=== PATIENT | female | born 1950 | race Caucasian/White ===

== ENCOUNTER 2016-08-05 14:04 | Emergency (ER) | payer MEDICARE, BC ==
[2016-08-05] MEDS ORDERED: Sodium Chloride 0.9% 500 ML IV ONE (14:41)
[2016-08-05] MEDS ORDERED: Albuterol/Ipratropium 3.0-0.5 MG/3 ML Neb Soln NEB ONE (14:41)
[2016-08-05] MEDS ORDERED: Sodium Chloride 0.9% 10 ML Syringe FLUSH PRN (14:41)
[2016-08-05] MEDS ORDERED: HYDROmorphone 1 MG/ML Syringe IVPUSH ONE ×2 (15:50→15:57)
[2016-08-05] MEDS ORDERED: Sodium Chloride 0.9% 1,000 ML IV ONE (15:59)
[2016-08-05] MEDS ORDERED: Ondansetron 4 MG/2 ML SDV IVPUSH ONE (17:53)
--- NOTE | 2016-08-05 18:20 | EDM.PDOC ---
ED HPI GENERAL MEDICAL PROBLEM - General Chief Complaint: Respiratory Problem Stated Complaint: SOB/WEAK/CONFUSED Time Seen by Provider: 08/05/16 14:15 Source of Information: Reports: Patient, Family (daughter) History Limitations: Reports: No Limitations - History of Present Illness INITIAL COMMENTS - FREE TEXT/NARRATIVE: 65-year-old female presents with her daughter for evaluation and treatment of increased confusion, lethargy and malaise. Patient reports that she has not been feeling well since Friday. Daughter reports that she went to check on her today and she felt that she was more confused than normal lethargic and she had an increased effort of breathing. Patient states that she feels more short of breath than normal. She is normally on 3 L via nasal cannula of oxygen at home. She has end-stage COPD. Patient reports that she has been taking her nebulizers and breathing medications as prescribed. She states that she was recently started on spree that and Daliresp a few weeks ago. Patient denies any chest pain, fevers, coughing, or abdominal pain. Friday morning the patient did feel nauseous and had 1 episode of vomiting. Patient has also had decreased urinary frequency. She has been drinking water. Daughter reports 2 weeks ago she may have drank out of a stagnant pond at home. Patient is currently on narcotics for chronic low back and right hip pain. She feels that it is worsening. She is in a pain contract with a pain clinic. Next visit is on the . She has had previous epidural injections for her chronic low back and hip pain. Daughter reports that she had an echocardiogram in March 2016. She had EF of 45-55% at that time. In March she was hospitalized and intubated for pneumonia and exacerbation. Lower Back Pain Score (Numeric/FACES): 3 - Related Data Allergies Allergy/AdvReac Type Severity Reaction Status Date / Time Sulfa (Sulfonamide Allergy Cannot Verified 08/05/16 14:15 Antibiotics) Remember sunflower oil Allergy Anaphylactic Verified 08/05/16 14:15 Shock sunflower seed Allergy Hives Verified 08/05/16 14:15 alendronate sodium AdvReac Nausea Verified 08/05/16 14:15 [From Fosamax] duloxetine HCl AdvReac Nausea and Verified 08/05/16 14:15 [From Cymbalta] Vomiting erythromycin base AdvReac Nausea Verified 08/05/16 14:15 pregabalin [From Lyrica] AdvReac Pain Verified 08/05/16 14:15 Home Meds: Home Meds ARIPiprazole [Abilify] 2 mg PO DAILY 12/29/14 [History] Furosemide [Lasix] 40 mg PO BID 12/29/14 [History] Albuterol Sulfate [Proair Respiclick] 2 puff INH Q4H PRN 07/24/15 [History] predniSONE 5 mg PO DAILY 07/24/15 [History] Escitalopram Oxalate 10 mg PO DAILY 08/03/15 [History] Fluticasone/Salmeterol [Advair Diskus 500-50] 1 puff INH BID 08/03/15 [History] Gabapentin [Neurontin] 300 mg PO TID 08/03/15 [History] Aspirin/Caffeine [Jon Back & Body Caplet] 2 tab PO Q6H 02/28/16 [History] oxyCODONE 10 mg PO Q6H PRN 02/29/16 [History] Acetaminophen [Tylenol Arthritis] 1,500 mg PO Q6H PRN #0 03/02/16 [Rx] Albuterol/Ipratropium [DuoNeb 3.0-0.5 MG/3 ML] 1 inh NEB Q6H PRN 03/18/16 [ History] Diclofenac Sodium [Voltaren 1% Gel] 1 applic TOP ASDIRECTED PRN 03/18/16 [ History] Carvedilol [Coreg] 3.125 mg PO BIDMEALS 08/05/16 [History] Metoclopramide HCl [Reglan] 5 mg PO Q8HR PRN #12 tablet 08/05/16 [Rx] Metoprolol Succinate [Toprol XL] 25 mg PO DAILY 08/05/16 [History] Nitroglycerin 0.4 mg .ROUTE ASDIRECTED PRN 08/05/16 [History] Pantoprazole [ProTONIX] 40 mg PO DAILY 08/05/16 [History] Potassium Chloride 40 meq PO DAILY 08/05/16 [History] Roflumilast [Daliresp] 500 mcg PO DAILY 08/05/16 [History] Rosuvastatin [Crestor] 5 mg PO DAILY 08/05/16 [History] Tiotropium [Spiriva HandiHaler] 18 mcg INH DAILY 08/05/16 [History] Past Medical History HEENT History: Reports: Other (See Below) 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 Cardiovascular History: Reports: Heart Failure, [place], Other (See Below) Other Cardiovascular History: hypotension, cardiomegaly Respiratory History: Reports: Asthma, COPD, Pneumonia, Recurrent, Other (See Below) Other Respiratory History: wears oxygen at home 3L Gastrointestinal History: Reports: Chronic Constipation, GERD Genitourinary History: Reports: Other (See Below) Other Genitourinary History: stress incontinence [employer] History: Reports: Musculoskeletal History: Reports: Osteoarthritis, Osteoporosis Other Musculoskeletal History: 3 herniated disc to cervical spine C2 C3 C5 C6 C7; lumbar spine with herniations from T12 through S1, R hip bursitis, back pain , lumbar degneration, wrist fracture with hardware Neurological History: Reports: None Psychiatric History: Reports: Addiction, Anxiety, Depression Endocrine/Metabolic History: Reports: None Hematologic History: Reports: Anemia Immunologic History: Reports: None Oncologic (Cancer) History: Reports: Other (See Below) Other Oncologic History: vocal cord ca Dermatologic History: Reports: Cellulitis - Infectious Disease History Infectious Disease History: Reports: C-Difficile, Shingles - Past Surgical History Female Surgical History: Reports: None, Other (See Below) Musculoskeletal Surgical History: Reports: Other (See Below) Social & Family History - Family History Family Medical History: Noncontributory Cardiac: Reports: Heart Failure, [place] Respiratory: Reports: COPD - Tobacco Use Smoking Status *Q: Current Every Day Smoker Years of Tobacco use: 46 Packs/Tins Daily: 0.8 Used Tobacco, but Quit: No Month Tobacco Last Used: 02/01 Second Hand Smoke Exposure: No - Caffeine Use Caffeine Use: Reports: Tea - Recreational Drug Use Recreational Drug Use: No - Living Situation & Occupation Living situation: Reports: Other Occupation: Retired ED ROS GENERAL - Review of Systems Review Of Systems: See Below Constitutional: Reports: Weakness, Fatigue, Other (increased confusion). Denies : Fever Respiratory: Reports: Shortness of Breath. Denies: Cough Cardiovascular: Denies: Chest Pain GI/Abdominal: Reports: Nausea, Vomiting (x1 episode ). Denies: Abdominal Pain : Denies: Dysuria, Frequency Musculoskeletal: Reports: Back Pain, Other (chronic hip pain) ED EXAM, GENERAL - Physical Exam Exam: See Below Exam Limited By: No Limitations General Appearance: Alert, WD/WN, Mild Distress, Thin Ears: Normal External Exam Nose: Normal Inspection. No: Nasal Flaring Throat/Mouth: Normal Inspection, Normal Lips, Normal Oropharynx, Normal Voice, No Airway Compromise. No: Perioral Cyanosis Neck: Normal Inspection Respiratory/Chest: Decreased Breath Sounds (throughout), Wheezing (diffuse expiratory). No: Crackles, Rhonchi Cardiovascular: Normal Peripheral Pulses, Regular Rate, Rhythm GI/Abdominal: Soft, Non-Tender Neurological: Alert, Oriented, Normal Cognition Psychiatric: Normal Affect, Normal Mood Skin Exam: Warm, Dry, Normal Color EKG INTERPRETATION EKG Date: 08/05/16 Time: 15:05 Rhythm: NSR Rate (Beats/Min): 80 [place]: Normal P-Wave: Present QRS: Normal ST-T: Normal QT: Normal EKG Interpretation Comments: NSR at 80 bpm. Near Q waves in V1 and V2 - consider old anteroseptal TX. Borderline LVH pattern. Nonspecific interventricular conduction delay. Reviewed by myself and Dr. Loya. Course - Vital Signs Last Recorded V/S: Last Vital Signs Temp 36.5 C 08/05/16 14:11 Pulse 82 08/05/16 19:29 Resp 18 08/05/16 19:29 BP 100/70 08/05/16 19:29 Pulse Ox 98 08/05/16 19:29 Orthostatic Blood Pressure [ 85/64 Standing] Orthostatic Blood Pressure [ 89/56 Sitting] Orthostatic Blood Pressure [ 103/63 Supine] - Orders/Labs/Meds Labs: Laboratory Tests 08/05/16 08/05/16 08/05/16 Range/Units 15:10 15:10 15:10 WBC 7.59 (3.98-10.04) K/mm3 RBC 4.35 (3.98-5.22) M/mm3 Hgb 12.3 (11.2-15.7) gm/L Hct 39.8 (34.1-44.9) % MCV 91.5 (79.4-94.8) fl MCH 28.3 (25.6-32.2) pg MCHC 30.9 L (32.2-35.5) g/dl RDW Std Deviation 51.4 H (36.4-46.3) fL Plt Count 357 (182-369) K/mm3 MPV 9.6 (9.4-12.3) fl Neut % (Auto) 67.2 (34.0-71.1) % Lymph % (Auto) 21.1 (19.3-51.7) % [place] % (Auto) 9.4 (4.7-12.5) % Eos % (Auto) 1.7 (0.7-5.8) Baso % (Auto) 0.3 (0.1-1.2) % Neut # (Auto) 5.11 (1.56-6.13) K/mm3 Lymph # (Auto) 1.60 (1.18-3.74) K/mm3 [place] # (Auto) 0.71 H (0.24-0.36) K/mm3 Eos # (Auto) 0.13 (0.04-0.36) K/mm3 Baso # (Auto) 0.02 (0.01-0.08) K/mm3 Puncture Site ABG pH (7.35-7.45) ABG pCO2 (35.0-45.0) mmHg ABG pO2 (80.0-100.0) mmHg ABG HCO3 (22.0-26.0) meq/L ABG O2 Saturation (96.0-97.0) % ABG Base Excess (-2-2.0) A-a Gradient mmHg O2 Delivery Device Oxygen Flow Rate FiO2 (21.00-100.00) % Sodium 142 (136-145) mEq/L Potassium 3.5 (3.5-5.1) mEq/L Chloride 101 (98-107) mEq/L Carbon Dioxide 33 H (21-32) mEq/L Anion Gap 11.5 (5-15) BUN 16 (7-18) mg/dL Creatinine 0.7 (0.55-1.02) mg/dL Est Cr Clr Drug Dosing 61.98 mL/min Estimated GFR (MDRD) > 60 (>60) mL/min BUN/Creatinine Ratio 22.9 H (14-18) Glucose 86 (80-115) mg/dL Lactic Acid 0.7 (0.4-2.0) mmol/L Calcium 8.7 (8.5-10.1) mg/dL Total Bilirubin 0.2 (0.2-1.0) mg/dL AST 29 (15-37) U/L ALT 34 (14-59) U/L Alkaline Phosphatase 53 (46-116) U/L C-Reactive Protein 0.6 (<1.0) mg/dL B-Natriuretic Peptide (0-100) pg/mL Total Protein 7.4 (6.4-8.2) g/dl Albumin 3.9 (3.4-5.0) g/dl Globulin 3.5 gm/dL Albumin/Globulin Ratio 1.1 (1-2) Urine Color (Yellow) Urine Appearance (Clear) Urine pH (5.0-8.0) Ur Specific [place] (1.005-1.030) Urine Protein (Negative) Urine Glucose (UA) (Negative) Urine Ketones (Negative) Urine Occult Blood (Negative) Urine Nitrite (Negative) Urine Bilirubin (Negative) Urine Urobilinogen (0.2-1.0) Ur Leukocyte Esterase (Negative) Urine RBC (0-5) /hpf Urine WBC (0-5) /hpf Ur Epithelial Cells (0-5) /hpf Urine Bacteria (FEW) /hpf Urine Mucus (FEW) /hpf 08/05/16 08/05/16 08/05/16 Range/Units 15:10 15:15 15:40 WBC (3.98-10.04) K/mm3 RBC (3.98-5.22) M/mm3 Hgb (11.2-15.7) gm/L Hct (34.1-44.9) % MCV (79.4-94.8) fl MCH (25.6-32.2) pg MCHC (32.2-35.5) g/dl RDW Std Deviation (36.4-46.3) fL Plt Count (182-369) K/mm3 MPV (9.4-12.3) fl Neut % (Auto) (34.0-71.1) % Lymph % (Auto) (19.3-51.7) % [place] % (Auto) (4.7-12.5) % Eos % (Auto) (0.7-5.8) Baso % (Auto) (0.1-1.2) % Neut # (Auto) (1.56-6.13) K/mm3 Lymph # (Auto) (1.18-3.74) K/mm3 [place] # (Auto) (0.24-0.36) K/mm3 Eos # (Auto) (0.04-0.36) K/mm3 Baso # (Auto) (0.01-0.08) K/mm3 Puncture Site Rt radial ABG pH 7.36 (7.35-7.45) ABG pCO2 44.7 (35.0-45.0) mmHg ABG pO2 68.0 L (80.0-100.0) mmHg ABG HCO3 24.6 (22.0-26.0) meq/L ABG O2 Saturation 94.0 L (96.0-97.0) % ABG Base Excess -0.5 (-2-2.0) A-a Gradient 81 mmHg O2 Delivery Device Nasal cannula Oxygen Flow Rate 3.0 FiO2 0.00 L (21.00-100.00) % Sodium (136-145) mEq/L Potassium (3.5-5.1) mEq/L Chloride (98-107) mEq/L Carbon Dioxide (21-32) mEq/L Anion Gap (5-15) BUN (7-18) mg/dL Creatinine (0.55-1.02) mg/dL Est Cr Clr Drug Dosing mL/min Estimated GFR (MDRD) (>60) mL/min BUN/Creatinine Ratio (14-18) Glucose (80-115) mg/dL Lactic Acid (0.4-2.0) mmol/L Calcium (8.5-10.1) mg/dL Total Bilirubin (0.2-1.0) mg/dL AST (15-37) U/L ALT (14-59) U/L Alkaline Phosphatase (46-116) U/L C-Reactive Protein (<1.0) mg/dL B-Natriuretic Peptide < 15 (0-100) pg/mL Total Protein (6.4-8.2) g/dl Albumin (3.4-5.0) g/dl Globulin gm/dL Albumin/Globulin Ratio (1-2) Urine Color Yellow (Yellow) Urine Appearance Clear (Clear) Urine pH 5.5 (5.0-8.0) Ur Specific [place] 1.025 (1.005-1.030) Urine Protein Negative (Negative) Urine Glucose (UA) Negative (Negative) Urine Ketones 1+ H (Negative) Urine Occult Blood Trace-intact H (Negative) Urine Nitrite Negative (Negative) Urine Bilirubin Negative (Negative) Urine Urobilinogen 0.2 (0.2-1.0) Ur Leukocyte Esterase Negative (Negative) Urine RBC 0-5 (0-5) /hpf Urine WBC 0-5 (0-5) /hpf Ur Epithelial Cells 0-5 (0-5) /hpf Urine Bacteria Not seen (FEW) /hpf Urine Mucus Not seen (FEW) /hpf Meds: Medications Discontinued Medications Generic Name Dose Route Start Last Admin Trade Name Freq PRN Reason Stop Dose Admin Albuterol/Ipratropium 3 ml 08/05/16 14:41 Duoneb 3.0-0.5 Mg/3 Ml NEB 08/05/16 14:42 ONETIME ONE Hydromorphone HCl 1 mg 08/05/16 15:50 08/05/16 16:07 Dilaudid IVPUSH 08/05/16 15:51 Not Given ONETIME ONE Hydromorphone HCl 0.5 mg 08/05/16 15:57 08/05/16 16:01 Dilaudid IVPUSH 08/05/16 15:58 0.5 mg ONETIME ONE Administration Sodium Chloride 500 mls @ 500 mls/hr 08/05/16 14:41 08/05/16 15:08 Normal Saline IV 08/05/16 15:40 500 mls/hr ONETIME ONE Administration Sodium Chloride 1,000 mls @ 999 mls/hr 08/05/16 15:59 08/05/16 16:06 Normal Saline IV 08/05/16 16:59 999 mls/hr ONETIME ONE Administration Ondansetron HCl 4 mg 08/05/16 17:53 08/05/16 18:05 Zofran IVPUSH 08/05/16 17:54 4 mg ONETIME ONE Administration Sodium Chloride 10 ml 08/05/16 14:41 08/05/16 15:08 Saline Flush FLUSH 10 ml ASDIRECTED PRN Administration Keep Vein Open - Radiology Interpretation Free Text/Narrative:: chest xray shows hyperinflation. No acute changes. Reviewed by myself and Dr. Loya - Re-Assessments/Exams Free Text/Narrative Re-Assessment/Exam: 08/05/16 18:11 Labs returned. WBC is 7.59, hgb is 12.3 and plts are 357 pH is 7.36, pO2 is 68, pCO2 is 44.7 and bicarb is 24.6 sodium is 142, potassium is 3.5, chloride is 101. Anion gap is 11.5. BNP is <15 CRP is 0.6 UA has 1+ ketones and trace intact blood I discussed the case with Dr. Loya. Recommended follow-up with PCP and pulmonology. I discussed labs and imaging with the patient. At this point I do not see any reason for admission. The patient has done well on 3 L via nasal cannula. Her lab studies are unremarkable. I discussed with her daughter options. If she is uncomfortable taking her home we could offer admission however, it may be for an observation admission. She would also likely be encouraged to go to a jail as she is unable to care for himself at home. Daughter does not want this and will take her home. I encouraged him to contact her food stand manager and her pain clinic. I recommend they discuss her new medication changes. Her symptoms today could be from her recent medication changes. Discharge instructions as documented. Departure - Departure Time of Disposition: 18:11 Disposition: Home, Self-Care 01 Condition: Fair Clinical Impression: Orthostatic hypotension - Discharge Information Prescriptions: Metoclopramide HCl [Reglan] 5 mg PO Q8HR PRN #12 tablet PRN Reason: Nausea Instructions: Orthostatic Hypotension Referrals: Orquidea Hernadez NP [Primary Care Provider] - Forms: ED Department Discharge Additional Instructions: Close follow-up with your primary care provider Friday or this week. Reglan 1 tab every 8 hours as needed for nausea. Rest. Stop the Coreg. Please return to the ER if your symptoms change or worsen.
[2016-08-05 19:31] VITALS: BP 100/70
--- NOTE | 2016-08-06 09:10 | CR ---
Chest: Portable view of the chest was obtained. Comparison: Previous chest x-ray of 04/01/16. Heart size and mediastinum are within normal limits. Focal density noted within the right upper lung believed to represent an area of scarring. Lungs otherwise are clear but somewhat hyperinflated. Bony structures are osteopenic but grossly intact. Previous cholecystectomy is noted. Probable emphysematous change is present. Impression: 1. Density within the right upper chest most likely representing area of scarring. Probable emphysematous change. 2. Other incidental findings. Nothing acute is definitely appreciated. Diagnostic code #3
== END 2016-08-05 18:50 | disposition home or self-care (01) ==
LOC: JD.ED 14:04
DX: I95.1 Orthostatic hypotension (principal); I50.9 Heart failure, unspecified; I25.2 Old myocardial infarction; J45.909 Unspecified asthma, uncomplicated; K21.9 Gastro-esophageal reflux disease without esophagitis; M19.90 Unspecified osteoarthritis, unspecified site; F41.9 Anxiety disorder, unspecified; F17.210 Nicotine dependence, cigarettes, uncomplicated; F32.9 Major depressive disorder, single episode, unspecified; Z88.2 Allergy status to sulfonamides; Z88.8 Allergy status to other drugs, medicaments and biological substances; Z79.82 Long term (current) use of aspirin
CPT/HCPCS: 36415; 36600; 71010; 80053; 81001; 82803; 83605; 83880; 85025; 86140; 87040; 93005; 94664; 96361; 96374; 96375; 99285; J1170; J2405; J7040; J7050; 99284

== ENCOUNTER 2016-09-13 00:30 | Emergency (ER) | payer MEDICARE, BC ==
[2016-09-13] MEDS ORDERED: Sodium Chloride 0.9% 10 ML Syringe FLUSH PRN (01:14)
[2016-09-13] MEDS ORDERED: methylPREDNISolone Sodium Succinate 125 MG/2 ML SDV IVPUSH ONE (01:20)
[2016-09-13] MEDS ORDERED: Albuterol/Ipratropium 3.0-0.5 MG/3 ML Neb Soln NEB ONE (01:20)
--- NOTE | 2016-09-13 02:48 | EDM.PDOC ---
ED HPI GENERAL MEDICAL PROBLEM - General Chief Complaint: General Stated Complaint: respiratory PROBLEMS Time Seen by Provider: 09/13/16 00:54 Source of Information: Reports: Patient, RN Notes Reviewed - History of Present Illness INITIAL COMMENTS - FREE TEXT/NARRATIVE: 66-year-old male by daughter for evaluation of shortness of breath, coughing, generalized weakness. She does have known long-standing history of COPD. Her daughter tells me that she has started smoking again. Patient states that the cough is worsened over the last few days. She is now coughing up yellowish colored phlegm. She is not aware of running fever. She does have a nebulizer at home but states she has not been using that regularly. She states she has not used it in the past day. She denies sore throat other than the discomfort of coughing. She denies major nasal or sinus congestion at this time. She's had decreased appetite. No current abdominal pain or vomiting. No leg swelling or discomfort. - Related Data Allergies Allergy/AdvReac Type Severity Reaction Status Date / Time Sulfa (Sulfonamide Allergy Cannot Verified 09/13/16 00:42 Antibiotics) Remember sunflower oil Allergy Anaphylactic Verified 09/13/16 00:42 Shock sunflower seed Allergy Hives Verified 09/13/16 00:42 alendronate sodium AdvReac Nausea Verified 09/13/16 00:42 [From Fosamax] duloxetine HCl AdvReac Nausea and Verified 09/13/16 00:42 [From Cymbalta] Vomiting erythromycin base AdvReac Nausea Verified 09/13/16 00:42 pregabalin [From Lyrica] AdvReac Pain Verified 09/13/16 00:42 Home Meds: Home Meds ARIPiprazole [Abilify] 2 mg PO DAILY 12/29/14 [History] Furosemide [Lasix] 40 mg PO BID 12/29/14 [History] Albuterol Sulfate [Proair Respiclick] 2 puff INH Q4H PRN 07/24/15 [History] predniSONE 5 mg PO DAILY 07/24/15 [History] Escitalopram Oxalate 10 mg PO DAILY 08/03/15 [History] Fluticasone/Salmeterol [Advair Diskus 500-50] 1 puff INH BID 08/03/15 [History] Gabapentin [Neurontin] 300 mg PO TID 08/03/15 [History] Aspirin/Caffeine [Jon Back & Body Caplet] 2 tab PO Q6H 02/28/16 [History] oxyCODONE 10 mg PO Q6H PRN 02/29/16 [History] Acetaminophen [Tylenol Arthritis] 1,500 mg PO Q6H PRN #0 03/02/16 [Rx] Albuterol/Ipratropium [DuoNeb 3.0-0.5 MG/3 ML] 1 inh NEB Q6H PRN 03/18/16 [ History] Diclofenac Sodium [Voltaren 1% Gel] 1 applic TOP ASDIRECTED PRN 03/18/16 [ History] Carvedilol [Coreg] 3.125 mg PO BIDMEALS 08/05/16 [History] Metoclopramide HCl [Reglan] 5 mg PO Q8HR PRN #12 tablet 08/05/16 [Rx] Metoprolol Succinate [Toprol XL] 25 mg PO DAILY 08/05/16 [History] Nitroglycerin 0.4 mg .ROUTE ASDIRECTED PRN 08/05/16 [History] Pantoprazole [ProTONIX] 40 mg PO DAILY 08/05/16 [History] Potassium Chloride 40 meq PO DAILY 08/05/16 [History] Roflumilast [Daliresp] 500 mcg PO DAILY 08/05/16 [History] Rosuvastatin [Crestor] 5 mg PO DAILY 08/05/16 [History] Tiotropium [Spiriva HandiHaler] 18 mcg INH DAILY 08/05/16 [History] Levofloxacin [Levaquin] 500 mg PO Q24H #7 tablet 09/13/16 [Rx] Past Medical History HEENT History: Reports: Other (See Below) 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 Cardiovascular History: Reports: Heart Failure, [place], Other (See Below) Other Cardiovascular History: hypotension, cardiomegaly Respiratory History: Reports: Asthma, COPD, Pneumonia, Recurrent, Other (See Below) Other Respiratory History: wears oxygen at home 3L Gastrointestinal History: Reports: Chronic Constipation, GERD Genitourinary History: Reports: Other (See Below) Other Genitourinary History: stress incontinence [employer]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: Musculoskeletal History: Reports: Osteoarthritis, Osteoporosis Other Musculoskeletal History: 3 herniated disc to cervical spine C2 C3 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 C7; lumbar spine with herniations from T12 through S1, R hip bursitis, back pain , lumbar degneration, wrist fracture with hardware Neurological History: Reports: None Psychiatric History: Reports: Addiction, Anxiety, Depression Endocrine/Metabolic History: Reports: None Hematologic History: Reports: Anemia Immunologic History: Reports: None Oncologic (Cancer) History: Reports: Other (See Below) Other Oncologic History: vocal cord ca Dermatologic History: Reports: Cellulitis - Infectious Disease History Infectious Disease History: Reports: C-Difficile, Shingles - Past Surgical History Female Surgical History: Reports: None, Other (See Below) Musculoskeletal Surgical History: Reports: Other (See Below) Social & Family History - Family History Family Medical History: Noncontributory Cardiac: Reports: Heart Failure, [place] Respiratory: Reports: COPD - Tobacco Use Smoking Status *Q: Current Every Day Smoker Years of Tobacco use: 35 Packs/Tins Daily: 1 Used Tobacco, but Quit: No Month Tobacco Last Used: 02/01 Second Hand Smoke Exposure: No - Caffeine Use Caffeine Use: Reports: Tea - Recreational Drug Use Recreational Drug Use: No - Living Situation & Occupation Living situation: Reports: Other Occupation: Retired ED ROS GENERAL - Review of Systems Review Of Systems: See Below Constitutional: Denies: Fever, Chills, Diaphoresis HEENT: Denies: Sinus Problem, Throat Pain Respiratory: Reports: Shortness of Breath, Wheezing, Cough, Sputum (Yellow colored). Denies: Pleuritic Chest Pain Cardiovascular: Reports: Chest Pain (With coughing) Endocrine: Reports: Fatigue GI/Abdominal: Reports: Decreased Appetite. Denies: Abdominal Pain, Nausea, Vomiting Musculoskeletal: Reports: No Symptoms Skin: Reports: No Symptoms Neurological: Reports: Weakness (Generalized). Denies: Trouble Speaking ED EXAM, GENERAL - Physical Exam Exam: See Below General Appearance: Alert, No Apparent Distress Eye Exam: Bilateral Eye: PERRL Nose: Normal Inspection Throat/Mouth: Normal Inspection, Normal Oropharynx Head: Atraumatic. No: Facial Swelling Neck: Supple, Full Range of Motion, Other (No JVD) Respiratory/Chest: Respiratory Distress (Mild tachypnea), Wheezing (Mild bilateral). No: Rales, Rhonchi Cardiovascular: Regular Rate, Rhythm GI/Abdominal: Soft, Non-Tender Back Exam: No: CVA Tenderness (L), CVA Tenderness (R) Extremities: No: Pedal Edema, Leg Pain Neurological: Alert, Oriented, No Motor/Sensory Deficits Skin Exam: Warm, Dry, Normal Color Course - Vital Signs Last Recorded V/S: Last Vital Signs Temp 97.0 F 09/13/16 00:43 Pulse 90 09/13/16 08:00 Resp 18 09/13/16 08:00 BP 120/75 09/13/16 08:00 Pulse Ox 96 09/13/16 08:00 - Orders/Labs/Meds Labs: Laboratory Tests 09/13/16 09/13/16 09/13/16 Range/Units 01:29 01:29 02:10 WBC 13.13 H (3.98-10.04) K/mm3 RBC 4.03 (3.98-5.22) M/mm3 Hgb 11.3 (11.2-15.7) gm/L Hct 36.8 (34.1-44.9) % MCV 91.3 (79.4-94.8) fl MCH 28.0 (25.6-32.2) pg MCHC 30.7 L (32.2-35.5) g/dl RDW Std Deviation 52.3 H (36.4-46.3) fL Plt Count 323 (182-369) K/mm3 MPV 9.7 (9.4-12.3) fl Neut % (Auto) 81.7 H (34.0-71.1) % Lymph % (Auto) 8.8 L (19.3-51.7) % Parke % (Auto) 6.9 (4.7-12.5) % Eos % (Auto) 2.2 (0.7-5.8) Baso % (Auto) 0.2 (0.1-1.2) % Neut # (Auto) 10.73 H (1.56-6.13) K/mm3 Lymph # (Auto) 1.16 L (1.18-3.74) K/mm3 Parke # (Auto) 0.90 H (0.24-0.36) K/mm3 Eos # (Auto) 0.29 (0.04-0.36) K/mm3 Baso # (Auto) 0.02 (0.01-0.08) K/mm3 Manual Slide Review Abnormal smear Sodium (136-145) mEq/L Potassium (3.5-5.1) mEq/L Chloride (98-107) mEq/L Carbon Dioxide (21-32) mEq/L Anion Gap (5-15) BUN (7-18) mg/dL Creatinine (0.55-1.02) mg/dL Est Cr Clr Drug Dosing Estimated GFR (MDRD) (>60) mL/min BUN/Creatinine Ratio (14-18) Glucose (80-115) mg/dL Calcium (8.5-10.1) mg/dL Total Bilirubin (0.2-1.0) mg/dL AST (15-37) U/L ALT (14-59) U/L Alkaline Phosphatase (46-116) U/L C-Reactive Protein 19.2 H* (<1.0) mg/dL B-Natriuretic Peptide < 15 (0-100) pg/mL Total Protein (6.4-8.2) g/dl Albumin (3.4-5.0) g/dl Globulin gm/dL Albumin/Globulin Ratio (1-2) 09/13/16 Range/Units 02:10 WBC (3.98-10.04) K/mm3 RBC (3.98-5.22) M/mm3 Hgb (11.2-15.7) gm/L Hct (34.1-44.9) % MCV (79.4-94.8) fl MCH (25.6-32.2) pg MCHC (32.2-35.5) g/dl RDW Std Deviation (36.4-46.3) fL Plt Count (182-369) K/mm3 MPV (9.4-12.3) fl Neut % (Auto) (34.0-71.1) % Lymph % (Auto) (19.3-51.7) % Parke % (Auto) (4.7-12.5) % Eos % (Auto) (0.7-5.8) Baso % (Auto) (0.1-1.2) % Neut # (Auto) (1.56-6.13) K/mm3 Lymph # (Auto) (1.18-3.74) K/mm3 Parke # (Auto) (0.24-0.36) K/mm3 Eos # (Auto) (0.04-0.36) K/mm3 Baso # (Auto) (0.01-0.08) K/mm3 Manual Slide Review Sodium 140 (136-145) mEq/L Potassium 4.3 (3.5-5.1) mEq/L Chloride 100 (98-107) mEq/L Carbon Dioxide 34 H (21-32) mEq/L Anion Gap 10.3 (5-15) BUN 22 H (7-18) mg/dL Creatinine 0.6 (0.55-1.02) mg/dL Est Cr Clr Drug Dosing TNP Estimated GFR (MDRD) > 60 (>60) mL/min BUN/Creatinine Ratio 36.7 H (14-18) Glucose 104 (80-115) mg/dL Calcium 8.9 (8.5-10.1) mg/dL Total Bilirubin 0.2 (0.2-1.0) mg/dL AST 17 (15-37) U/L ALT 24 (14-59) U/L Alkaline Phosphatase 63 (46-116) U/L C-Reactive Protein (<1.0) mg/dL B-Natriuretic Peptide (0-100) pg/mL Total Protein 7.4 (6.4-8.2) g/dl Albumin 3.7 (3.4-5.0) g/dl Globulin 3.7 gm/dL Albumin/Globulin Ratio 1.0 (1-2) Meds: Medications Discontinued Medications Generic Name Dose Route Start Last Admin Trade Name Freq PRN Reason Stop Dose Admin Acetaminophen 975 mg 09/13/16 06:49 09/13/16 06:57 Tylenol PO 09/13/16 06:50 975 mg NOW ONE Administration Albuterol 2.5 mg 09/13/16 06:37 09/13/16 06:51 Proventil Neb Soln [facility] 09/13/16 06:38 2.5 mg ONETIME ONE Administration Albuterol/Ipratropium 3 ml 09/13/16 01:20 09/13/16 01:34 Duoneb 3.0-0.5 Mg/3 Ml [facility] 09/13/16 01:21 3 ml ONETIME ONE Administration Levofloxacin/Dextrose 750 mg/ 150 mls @ 100 mls/hr 09/13/16 03:04 09/13/16 03 :46 Premix IV 09/13/16 04:33 100 mls/hr ONETIME ONE Administration Methylprednisolone Sodium Succinate 125 mg 09/13/16 01:20 09/13/16 01:31 Solu-Medrol IVPUSH 09/13/16 01:21 125 mg ONETIME ONE Administration Prednisone 40 mg 09/13/16 06:53 Prednisone PO 09/13/16 06:54 NOW ONE Prednisone 40 mg 09/13/16 06:56 09/13/16 06:57 Prednisone PO 09/13/16 06:57 40 mg ONETIME ONE Administration Prednisone Confirm 09/13/16 06:57 Prednisone Administered 09/13/16 06:58 Dose 40 mg .ROUTE .STK-MED ONE Sodium Chloride 10 ml 09/13/16 01:14 09/13/16 01:31 Saline Flush FLUSH 10 ml ASDIRECTED PRN Administration Keep Vein Open - Re-Assessments/Exams Free Text/Narrative Re-Assessment/Exam: 09/13/16 02:47 Chest x-ray shows some mild hyperinflation, no apparent acute infiltrate, lung markings similar to prior chest x-ray on record Departure - Departure Time of Disposition: 08:00 Disposition: Home, Self-Care 01 Condition: Fair Clinical Impression: COPD exacerbation - Discharge Information Prescriptions: Levofloxacin [Levaquin] 500 mg PO Q24H #7 tablet Instructions: Chronic Obstructive Pulmonary Disease Exacerbation Referrals: Orquidea Hernadez SUSTAINABLE DESIGN COORDINATOR [Primary Care Provider] - Forms: ED Department Discharge Additional Instructions: You need to try hard to stop smoking, you have been given a dose of Levaquin 750 mg IV while here in the emergency department. Continue that 500 mg daily for the next week. Your next dose of Levaquin should be tomorrow morning. Prednisone 40 mg every morning for 3 days and then 20 mg every morning for 3 days. Follow-up with your regular medical provider in about one week for recheck. Return to ED if symptoms worsening in any way
[2016-09-13] MEDS ORDERED: Levofloxacin/Dextrose 5%-Water 750 MG in Premix Bag 1 BAG IV ONE (03:04)
[2016-09-13] MEDS ORDERED: Albuterol 0.083% 2.5 MG/3 ML Neb Soln NEB ONE (06:37)
[2016-09-13] MEDS ORDERED: Acetaminophen 325 MG Tab PO ONE (06:49)
[2016-09-13] MEDS ORDERED: predniSONE 20 MG Tab PO ONE ×2 (06:53→06:56)
[2016-09-13] MEDS ORDERED: predniSONE 20 MG Tab ONE (06:57)
--- NOTE | 2016-09-13 08:04 | CR ---
Chest: Portable view of the chest was obtained. Comparison: Previous chest x-ray of 08/05/16. Heart size and mediastinum are normal. Small parenchymal density noted within the right upper lung most likely due to an area of scarring which is similar to previous exam. Lungs otherwise are clear. Bony structures are grossly intact. Impression: 1. Stable area of parenchymal scarring within the right upper lung. 2. Nothing acute is appreciated on portable chest x-ray. Diagnostic code #2
[2016-09-13 08:40] VITALS: BP 120/75
== END 2016-09-13 08:20 | disposition home or self-care (01) ==
LOC: JD.ED 00:30
DX: J44.1 Chronic obstructive pulmonary disease with (acute) exacerbation (principal); I25.2 Old myocardial infarction; I50.9 Heart failure, unspecified; J45.909 Unspecified asthma, uncomplicated; K21.9 Gastro-esophageal reflux disease without esophagitis; M19.90 Unspecified osteoarthritis, unspecified site; M81.0 Age-related osteoporosis without current pathological fracture; F17.210 Nicotine dependence, cigarettes, uncomplicated; F41.9 Anxiety disorder, unspecified; F32.9 Major depressive disorder, single episode, unspecified; Z79.82 Long term (current) use of aspirin; Z79.899 Other long term (current) drug therapy; Z88.1 Allergy status to other antibiotic agents; Z88.2 Allergy status to sulfonamides; Z88.8 Allergy status to other drugs, medicaments and biological substances; Z91.018 Allergy to other foods
CPT/HCPCS: 36415; 71010; 80053; 83880; 85025; 86140; 94640; 94664; 96365; 96375; 99285; A9270; J1956; J2930; J7050; 99284

== ENCOUNTER 2016-10-25 15:18 | Emergency (ER) | payer MEDICARE, BC ==
[2016-10-25] MEDS ORDERED: Sodium Chloride 0.9% 10 ML Syringe FLUSH PRN (16:07)
--- NOTE | 2016-10-25 16:26 | EDM.PDOC ---
ED HPI GENERAL MEDICAL PROBLEM - General Chief Complaint: Respiratory Problem Stated Complaint: CHF Time Seen by Provider: 10/25/16 16:09 Source of Information: Reports: Patient History Limitations: Reports: No Limitations - History of Present Illness INITIAL COMMENTS - FREE TEXT/NARRATIVE: 66-year-old female with a past medical history of COPD and emphysema presents with her daughter for evaluation and treatment of weight gain and lower leg edema. History is provided by the patient and her daughter. Current symptoms include weakness, lightheadedness, bilateral lower leg edema and a weight gain of 4 pounds in one week. Patient is chronically on oxygen due to her COPD. Normally wears 2-3 L at home. She has not had an increase oxygen. She has not noticed any shortness of breath worse than normal. She denies any chest pain, fevers, nausea, vomiting, worsening cough, worsening shortness of breath or any syncope. Patient lives at home by herself. She frequently has fatigue due to her COPD. Daughter reports a week ago she fell. States that she will often fall asleep while standing up. She landed on her buttocks and her low back. She does have chronic back pain. She is currently in a pain contract for this. She has been walking and the daughter only recently found out about the fall. lower back Pain Score (Numeric/FACES): 4 - Related Data Allergies Allergy/AdvReac Type Severity Reaction Status Date / Time Sulfa (Sulfonamide Allergy Cannot Verified 10/27/16 15:54 Antibiotics) Remember sunflower oil Allergy Anaphylactic Verified 10/27/16 15:54 Shock sunflower seed Allergy Hives Verified 10/27/16 15:54 alendronate sodium AdvReac Nausea Verified 10/27/16 15:54 [From Fosamax] duloxetine HCl AdvReac Nausea and Verified 10/27/16 15:54 [From Cymbalta] Vomiting erythromycin base AdvReac Nausea Verified 10/27/16 15:54 pregabalin [From Lyrica] AdvReac Pain Verified 10/27/16 15:54 Home Meds: Home Meds ARIPiprazole [Abilify] 2 mg PO DAILY 12/29/14 [History] Furosemide [Lasix] 40 mg PO BID 12/29/14 [History] Albuterol Sulfate [Proair Respiclick] 2 puff INH Q4H PRN 07/24/15 [History] Escitalopram Oxalate 20 mg PO DAILY 08/03/15 [History] Fluticasone/Salmeterol [Advair Diskus 500-50] 1 puff INH BID 08/03/15 [History] Gabapentin [Neurontin] 600 mg PO TID 08/03/15 [History] Aspirin/Caffeine [Jon Back & Body Caplet] 2 tab PO Q6H PRN 02/28/16 [History] oxyCODONE 10 mg PO Q6H PRN 02/29/16 [History] Acetaminophen [Tylenol Arthritis] 1,500 mg PO Q6H PRN #0 03/02/16 [Rx] Albuterol/Ipratropium [DuoNeb 3.0-0.5 MG/3 ML] 1 inh NEB Q6H PRN 03/18/16 [ History] Diclofenac Sodium [Voltaren 1% Gel] 1 applic TOP ASDIRECTED PRN 03/18/16 [ History] Nitroglycerin 0.4 mg .ROUTE ASDIRECTED PRN 08/05/16 [History] Pantoprazole [ProTONIX] 40 mg PO DAILY 08/05/16 [History] Potassium Chloride 40 meq PO DAILY 08/05/16 [History] Rosuvastatin [Crestor] 5 mg PO DAILY 08/05/16 [History] Tiotropium [Spiriva HandiHaler] 18 mcg INH DAILY 08/05/16 [History] ALPRAZolam [ALPRAZolam ODT] 0.25 mg PO BEDTIME PRN 10/25/16 [History] Albuterol/Ipratropium [DuoNeb 3.0-0.5 MG/3 ML] 3 ml NEB Q6H PRN 10/25/16 [ History] Calcium Carbonate/Vitamin D3 [Calcium 500 + Vit D 400] 1 each PO BID 10/25/16 [ History] Cephalexin [IMW: Cephalexin] 500 mg PO BID #14 cap 10/25/16 [Rx] Cholecalciferol (Vitamin D3) [Vitamin D3] 1,000 unit PO DAILY 10/25/16 [History] Cyanocobalamin (Vitamin B-12) [Cyanocobalamin Injection] 1,000 mcg IJ ASDIRECTED 10/25/16 [History] Denosumab [Prolia] 60 mg SUBCUT ONETIME 10/25/16 [History] Ferrous Sulfate 325 mg PO DAILY 10/25/16 [History] Loperamide [Imodium] 4 mg PO Q6H PRN 10/25/16 [History] diphenhydrAMINE HCl [Benadryl Allergy] 25 mg PO ASDIRECTED PRN 10/25/16 [History ] Doxycycline Hyclate 100 mg PO Q12H #20 tablet 10/27/16 [Rx] busPIRone [Buspar] 5 mg PO TID 10/27/16 [History] Past Medical History HEENT History: Reports: Other (See Below) 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 Cardiovascular History: Reports: Heart Failure, [place], Other (See Below) Other Cardiovascular History: hypotension, cardiomegaly Respiratory History: Reports: Asthma, COPD, Pneumonia, Recurrent, Other (See Below) Other Respiratory History: wears oxygen at home 2L Gastrointestinal History: Reports: Chronic Constipation, GERD Genitourinary History: Reports: Other (See Below) Other Genitourinary History: stress incontinence [employer]OR [employer] History: Reports: Musculoskeletal History: Reports: Osteoarthritis, Osteoporosis Other Musculoskeletal History: 3 herniated disc to cervical spine C2 C3 C5 C6 C7; lumbar spine with herniations from T12 through S1, R hip bursitis, back pain , lumbar degneration, wrist fracture with hardware Neurological History: Reports: None Psychiatric History: Reports: Addiction, Anxiety, Depression Endocrine/Metabolic History: Reports: None Hematologic History: Reports: Anemia Immunologic History: Reports: None Oncologic (Cancer) History: Reports: Other (See Below) Other Oncologic History: vocal cord ca Dermatologic History: Reports: Cellulitis - Infectious Disease History Infectious Disease History: Reports: C-Difficile, Shingles - Past Surgical History Female Surgical History: Reports: None Musculoskeletal Surgical History: Reports: Other (See Below) Social & Family History - Family History Family Medical History: Noncontributory Cardiac: Reports: Heart Failure, IA Respiratory: Reports: COPD - Tobacco Use Smoking Status *Q: Former Smoker Years of Tobacco use: 35 Packs/Tins Daily: 1 Used Tobacco, but Quit: No Month Tobacco Last Used: 02/01 Second Hand Smoke Exposure: No - Caffeine Use Caffeine Use: Reports: Coffee - Recreational Drug Use Recreational Drug Use: No - Living Situation & Occupation Living situation: Reports: Other Occupation: Retired ED ROS GENERAL - Review of Systems Review Of Systems: See Below Constitutional: Reports: Weakness, Fatigue, Weight Gain (4lbs in one week). Denies: Fever Respiratory: Reports: Shortness of Breath (chronic, not change). Denies: Cough Cardiovascular: Reports: Edema, Lightheadedness. Denies: Chest Pain GI/Abdominal: Denies: Nausea, Vomiting Musculoskeletal: Reports: Back Pain (chronic) Neurological: Denies: Syncope ED EXAM, GENERAL - Physical Exam Exam: See Below Exam Limited By: No Limitations General Appearance: No Apparent Distress, Lethargic, Thin Ears: Normal External Exam, Normal Canal, Hearing Grossly Normal, Normal TMs Nose: Normal Inspection Throat/Mouth: Normal Inspection, Normal Lips, Normal Voice, No Airway Compromise Respiratory/Chest: No Respiratory Distress, Wheezing Cardiovascular: Normal Peripheral Pulses, Regular Rate, Rhythm, No Murmur, Other (trace nonpitting edema to the bilateral legs) Peripheral Pulses: 2+: Radial (L), Radial (R), Posterior Tibial (L), Posterior Tibial (R) GI/Abdominal: Soft, Non-Tender Back Exam: Normal Inspection Extremities: Normal Inspection, Normal Range of Motion Neurological: Slow to Respond Psychiatric: Normal Affect, Normal Mood Skin Exam: Warm, Dry, Pallor EKG INTERPRETATION EKG Date: 10/25/16 Time: 17:00 Rhythm: NSR Rate (Beats/Min): 98 [place]: Normal P-Wave: Present QRS: LBBB ST-T: Normal QT: Normal EKG Interpretation Comments: NSR at 98 bpm. LBBB. Reviewed by myself and Dr. jaime. Course - Vital Signs Last Recorded V/S: Last Vital Signs Temp 36.5 C 10/25/16 15:20 Pulse 112 H 10/25/16 20:00 Resp 29 H 10/25/16 20:00 BP 114/56 L 10/25/16 18:30 Pulse Ox 99 10/25/16 20:00 Orthostatic Blood Pressure [ 106/64 Standing] Orthostatic Blood Pressure [ 99/57 Supine] - Orders/Labs/Meds Labs: Laboratory Tests 10/25/16 10/25/16 10/25/16 Range/Units 16:18 16:25 16:25 WBC 17.90 H (3.98-10.04) K/mm3 RBC 4.16 (3.98-5.22) M/mm3 Hgb 11.9 (11.2-15.7) gm/L Hct 37.9 (34.1-44.9) % MCV 91.1 (79.4-94.8) fl MCH 28.6 (25.6-32.2) pg MCHC 31.4 L (32.2-35.5) g/dl RDW Std Deviation 52.7 H (36.4-46.3) fL Plt Count 350 (182-369) K/mm3 MPV 9.5 (9.4-12.3) fl Neut % (Auto) 84.2 H (34.0-71.1) % Lymph % (Auto) 7.0 L (19.3-51.7) % Rock % (Auto) 8.1 (4.7-12.5) % Eos % (Auto) 0.3 L (0.7-5.8) Baso % (Auto) 0.1 (0.1-1.2) % Neut # (Auto) 15.06 H (1.56-6.13) K/mm3 Lymph # (Auto) 1.26 (1.18-3.74) K/mm3 Rock # (Auto) 1.45 H (0.24-0.36) K/mm3 Eos # (Auto) 0.05 (0.04-0.36) K/mm3 Baso # (Auto) 0.02 (0.01-0.08) K/mm3 Manual Slide Review Normal smear Sodium 139 (136-145) mEq/L Potassium 3.3 L (3.5-5.1) mEq/L Chloride 100 (98-107) mEq/L Carbon Dioxide 32 (21-32) mEq/L Anion Gap 10.3 (5-15) BUN 14 (7-18) mg/dL Creatinine 0.6 (0.55-1.02) mg/dL Est Cr Clr Drug Dosing 71.96 mL/min Estimated GFR (MDRD) > 60 (>60) mL/min BUN/Creatinine Ratio 23.3 H (14-18) Glucose 104 (80-115) mg/dL Calcium 8.8 (8.5-10.1) mg/dL Total Bilirubin 0.3 (0.2-1.0) mg/dL AST 42 H (15-37) U/L ALT 25 (14-59) U/L Alkaline Phosphatase 43 L (46-116) U/L CK-MB (CK-2) 8.0 H (0-3.6) ng/ml Troponin I < 0.017 (0.00-0.056) ng/mL C-Reactive Protein (<1.0) mg/dL NT-Pro-B Natriuret Pep 157 H (0-125) pg/mL Total Protein 7.6 (6.4-8.2) g/dl Albumin 3.9 (3.4-5.0) g/dl Globulin 3.7 gm/dL Albumin/Globulin Ratio 1.1 (1-2) Urine Color Yellow (Yellow) Urine Appearance Clear (Clear) Urine pH 6.5 (5.0-8.0) Ur Specific [place] 1.015 (1.005-1.030) Urine Protein Negative (Negative) Urine Glucose (UA) Negative (Negative) Urine Ketones Negative (Negative) Urine Occult Blood Trace-intact H (Negative) Urine Nitrite Negative (Negative) Urine Bilirubin Negative (Negative) Urine Urobilinogen 0.2 (0.2-1.0) Ur Leukocyte Esterase Trace H (Negative) Urine RBC 0-5 (0-5) /hpf Urine WBC 0-5 (0-5) /hpf Ur Epithelial Cells Not seen (0-5) /hpf Urine Bacteria Not seen (FEW) /hpf Urine Mucus Not seen (FEW) /hpf 10/25/16 Range/Units 16:25 WBC (3.98-10.04) K/mm3 RBC (3.98-5.22) M/mm3 Hgb (11.2-15.7) gm/L Hct (34.1-44.9) % MCV (79.4-94.8) fl MCH (25.6-32.2) pg MCHC (32.2-35.5) g/dl RDW Std Deviation (36.4-46.3) fL Plt Count (182-369) K/mm3 MPV (9.4-12.3) fl Neut % (Auto) (34.0-71.1) % Lymph % (Auto) (19.3-51.7) % Rock % (Auto) (4.7-12.5) % Eos % (Auto) (0.7-5.8) Baso % (Auto) (0.1-1.2) % Neut # (Auto) (1.56-6.13) K/mm3 Lymph # (Auto) (1.18-3.74) K/mm3 Rock # (Auto) (0.24-0.36) K/mm3 Eos # (Auto) (0.04-0.36) K/mm3 Baso # (Auto) (0.01-0.08) K/mm3 Manual Slide Review Sodium (136-145) mEq/L Potassium (3.5-5.1) mEq/L Chloride (98-107) mEq/L Carbon Dioxide (21-32) mEq/L Anion Gap (5-15) BUN (7-18) mg/dL Creatinine (0.55-1.02) mg/dL Est Cr Clr Drug Dosing mL/min Estimated GFR (MDRD) (>60) mL/min BUN/Creatinine Ratio (14-18) Glucose (80-115) mg/dL Calcium (8.5-10.1) mg/dL Total Bilirubin (0.2-1.0) mg/dL AST (15-37) U/L ALT (14-59) U/L Alkaline Phosphatase (46-116) U/L CK-MB (CK-2) (0-3.6) ng/ml Troponin I (0.00-0.056) ng/mL C-Reactive Protein 12.4 H* (<1.0) mg/dL NT-Pro-B Natriuret Pep (0-125) pg/mL Total Protein (6.4-8.2) g/dl Albumin (3.4-5.0) g/dl Globulin gm/dL Albumin/Globulin Ratio (1-2) Urine Color (Yellow) Urine Appearance (Clear) Urine pH (5.0-8.0) Ur Specific [place] (1.005-1.030) Urine Protein (Negative) Urine Glucose (UA) (Negative) Urine Ketones (Negative) Urine Occult Blood (Negative) Urine Nitrite (Negative) Urine Bilirubin (Negative) Urine Urobilinogen (0.2-1.0) Ur Leukocyte Esterase (Negative) Urine RBC (0-5) /hpf Urine WBC (0-5) /hpf Ur Epithelial Cells (0-5) /hpf Urine Bacteria (FEW) /hpf Urine Mucus (FEW) /hpf Meds: Medications Discontinued Medications Generic Name Dose Route Start Last Admin Trade Name Freq PRN Reason Stop Dose Admin Albuterol/Ipratropium 3 ml 10/25/16 18:42 10/25/16 19:04 Duoneb 3.0-0.5 Mg/3 Ml NEB 10/25/16 18:43 3 ml ONETIME ONE Administration Oxycodone HCl 10 mg 10/25/16 19:49 10/25/16 20:04 Oxycodone PO 10/25/16 19:50 10 mg ONETIME ONE Administration Sodium Chloride 10 ml 10/25/16 16:07 10/25/16 16:30 Saline Flush FLUSH 10 ml ASDIRECTED PRN Administration Keep Vein Open - Radiology Interpretation Free Text/Narrative:: chest xray shows an area in the right middle lobe identified previously as a parenchymal density. This appears increased from previous chest x-rays. Chest CT obtained to further evaluate. Chest CT without contrast impression per Dr. Beltrán 1. Confluent density within the right upper lung. Difficult without older chest CT to determine whether is neoplastic or due to confluence scarring. Severe emphysematous changes noted with other scattered areas of scarring and interstitial fibrosis. 2. Biopsy of the lesion would be difficult given emphysema is change. Consideration for PET scan could be obtained to further evaluate. - Re-Assessments/Exams Free Text/Narrative Re-Assessment/Exam: 10/25/16 17:25 I reviewed the chest x-ray, EKG and lab results with the patient and her daughter. I'm concerned about the increasing area on the chest x-ray. This is concerning for pneumonia. Her white count is elevated at 17.29 and her CRP is elevated at 12.4. Of note she chronically has elevated white blood cell count and CRP. Her troponin is within normal limits. Her BNP is slightly elevated. 10/25/16 19:23 Offered to x-ray the low back and hips. Daughter declines this, she feels it is unlikely she has fractured anything. I reviewed the CT results with the patient and her daughter. Daughter reports that she did have a PET scan in February. This showed no abnormalities. Given her elevated white blood cell count and CRP I feel we should go ahead and treat for infection. At this point is not completely clear what is the cause. Daughter also reports that she did have what sounds been abscess to her nose recently. She lanced this at home. Patient also does have trace leukocytes in her urine. I will start her on Keflex as the apparent cause of her lab changes is likely dermatological or possibly urinary. As far as the edema and the weight gain, I did not appreciate much more than trace nonpitting edema on the legs. Her BNP is only slightly above normal. Her chest x-ray and chest CT so no pulmonary congestion and she is not requiring any more oxygen than normal. Given that she has a lower blood pressure I do not feel we need to increase her Lasix at this time. I think she should elevate her legs and use her compression stockings. I will have her follow up closely with her primary care provider. She is instructed to return to the ER for symptoms change or worsen. Discharge instructions as documented. Departure - Departure Time of Disposition: 19:49 Disposition: Home, Self-Care 01 Condition: Fair Clinical Impression: Scarring of lung, Edema COPD (chronic obstructive pulmonary disease) Qualifiers: COPD type: COPD with acute exacerbation Qualified Code(s): J44.1 - Chronic obstructive pulmonary disease with (acute) exacerbation - Discharge Information Prescriptions: Cephalexin [IMW: Cephalexin] 500 mg PO BID #14 cap Instructions: Chronic Obstructive Pulmonary Disease Exacerbation, Edema Referrals: Orquidea Hernadez SHEETER OPERATOR [Primary Care Provider] - Forms: ED Department Discharge Additional Instructions: Keflex 1 tab twice a day for 7 days. Continue with your current plan of care. Recommend using the compression stockings. Elevate the legs. Follow-up with your primary care provider next week for recheck of your symptoms. Please return to the ER if your symptoms change or worsen.
[2016-10-25] MEDS ORDERED: Albuterol/Ipratropium 3.0-0.5 MG/3 ML Neb Soln NEB ONE (18:42)
--- NOTE | 2016-10-25 19:18 | CT ---
CT chest Technique: Multiple axial sections through the chest were obtained. Comparison: Previous chest x-ray of 10/25/16 and 09/05/16. Findings: Confluent is density noted within the right upper lung. Interstitial type change extends into the right hilum. Without previous chest CT difficult to exclude neoplasm given that this finding is slightly change from older chest x-rays. More confluent area measures around 3.3 cm in size. Areas of parenchymal density are seen within both lung apices worse on the right side most likely due to scarring. Severe emphysematous change is present. Mild interstitial change is noted within the left upper lung believed to represent fibrosis. Small nodule is noted within the right middle lobe measuring 4 mm. Slight scarring is noted within the right middle lobe. Interstitial fibrosis is seen within the right lung base extending from the right hilum. Small calcification seen within the superior segment of the right lower lobe compatible with granuloma. Several small mediastinal lymph nodes are seen which measure within normal limits. Aorta shows atherosclerotic change without aneurysmal dilatation. Mild coronary artery calcification is seen. Small portion the visualized upper abdominal structures appear within normal limits. Bone window settings were reviewed which appears within normal limits. Impression: 1. Confluent density within the right upper lung. Difficult without older chest CT to determine whether this is neoplastic or due to confluence scarring. Severe emphysematous change is noted with other scattered areas of scarring and interstitial fibrosis. 2. Biopsy of this lesion would be difficult given the emphysematous change. Consideration for PET scan could be obtained to further evaluate. Diagnostic code #9
[2016-10-25] MEDS ORDERED: oxyCODONE 5 MG Tab PO ONE (19:49)
[2016-10-25 20:16] VITALS: BP 114/56
--- NOTE | 2016-10-28 08:58 | CR ---
Chest: Portable view of the chest was obtained. Comparison: Previous chest x-ray of 09/13/16. Increasing parenchymal density is noted within the right upper lung. Differential includes neoplastic mass versus pneumonia or even a combination of both. Lungs otherwise are clear. Heart size and mediastinum are normal. Bony structures are grossly intact. Impression: 1. Parenchymal density within the right upper chest increased in prominence from prior exam. Diagnostic code #9
== END 2016-10-25 20:14 | disposition home or self-care (01) ==
LOC: JD.ED 15:18
DX: R60.0 Localized edema (principal); J98.4 Other disorders of lung; J44.1 Chronic obstructive pulmonary disease with (acute) exacerbation; I50.9 Heart failure, unspecified; I25.2 Old myocardial infarction; K21.9 Gastro-esophageal reflux disease without esophagitis; M19.90 Unspecified osteoarthritis, unspecified site; M81.0 Age-related osteoporosis without current pathological fracture; F32.9 Major depressive disorder, single episode, unspecified; Z86.2 Personal history of diseases of the blood and blood-forming organs and certain disorders involving the immune mechanism; Z87.891 Personal history of nicotine dependence; Z79.899 Other long term (current) drug therapy; Z88.1 Allergy status to other antibiotic agents; Z88.2 Allergy status to sulfonamides; Z88.8 Allergy status to other drugs, medicaments and biological substances; Z91.018 Allergy to other foods; Z99.81 Dependence on supplemental oxygen
CPT/HCPCS: 36415; 71010; 71250; 80053; 81001; 82553; 83880; 84484; 85025; 86140; 93005; 94664; 99285; A9270; J7050; 93010

== ENCOUNTER 2016-10-27 15:43 | Emergency (ER) | payer MEDICARE, BC ==
[2016-10-27] MEDS ORDERED: Lactated Ringers 500 ML IV ONE (17:43)
[2016-10-27] MEDS ORDERED: Sodium Chloride 0.9% 10 ML Syringe FLUSH ONE (19:27)
[2016-10-27] MEDS ORDERED: Iopamidol 755 Mg/ML 100 ML Bottle IVPUSH ONE (19:27)
[2016-10-27] MEDS ORDERED: Sodium Chloride 0.9% 100 ML IV SCH (19:30)
--- NOTE | 2016-10-27 20:25 | EDM.PDOC ---
ED HPI GENERAL MEDICAL PROBLEM - General Chief Complaint: Respiratory Problem Stated Complaint: SHORT OF BREATH Time Seen by Provider: 10/27/16 20:23 - History of Present Illness INITIAL COMMENTS - FREE TEXT/NARRATIVE: 66-year-old female presents emergency room with continued shortness of breath and chest wall pain. Patient was seen here on Friday started on antibiotics she had an unenhanced CAT scan done which show either worsening scarring in her right upper lung versus potential tumor the patient had a PET scan done in February that showed a 1-1/2 cm lesion they are monitoring this every 6 months by there was some concern that perhaps it was getting a little larger back in February. The unenhanced CT done on Friday shows that the mass is 3.3 cm. The patient has not had increase her O2 demand she's had worsening right chest wall pain brought on by breathing. Family is concerned about the possibility of a PE. mid back Pain Score (Numeric/FACES): 5 - Related Data Allergies Allergy/AdvReac Type Severity Reaction Status Date / Time Sulfa (Sulfonamide Allergy Cannot Verified 10/27/16 15:54 Antibiotics) Remember sunflower oil Allergy Anaphylactic Verified 10/27/16 15:54 Shock sunflower seed Allergy Hives Verified 10/27/16 15:54 alendronate sodium AdvReac Nausea Verified 10/27/16 15:54 [From Fosamax] duloxetine HCl AdvReac Nausea and Verified 10/27/16 15:54 [From Cymbalta] Vomiting erythromycin base AdvReac Nausea Verified 10/27/16 15:54 pregabalin [From Lyrica] AdvReac Pain Verified 10/27/16 15:54 Home Meds: Home Meds ARIPiprazole [Abilify] 2 mg PO DAILY 12/29/14 [History] Furosemide [Lasix] 40 mg PO BID 12/29/14 [History] Albuterol Sulfate [Proair Respiclick] 2 puff INH Q4H PRN 07/24/15 [History] Escitalopram Oxalate 20 mg PO DAILY 08/03/15 [History] Fluticasone/Salmeterol [Advair Diskus 500-50] 1 puff INH BID 08/03/15 [History] Gabapentin [Neurontin] 600 mg PO TID 08/03/15 [History] Aspirin/Caffeine [Jon Back & Body Caplet] 2 tab PO Q6H PRN 02/28/16 [History] oxyCODONE 10 mg PO Q6H PRN 02/29/16 [History] Acetaminophen [Tylenol Arthritis] 1,500 mg PO Q6H PRN #0 03/02/16 [Rx] Albuterol/Ipratropium [DuoNeb 3.0-0.5 MG/3 ML] 1 inh NEB Q6H PRN 03/18/16 [ History] Diclofenac Sodium [Voltaren 1% Gel] 1 applic TOP ASDIRECTED PRN 03/18/16 [ History] Nitroglycerin 0.4 mg .ROUTE ASDIRECTED PRN 08/05/16 [History] Pantoprazole [ProTONIX] 40 mg PO DAILY 08/05/16 [History] Potassium Chloride 40 meq PO DAILY 08/05/16 [History] Rosuvastatin [Crestor] 5 mg PO DAILY 08/05/16 [History] Tiotropium [Spiriva HandiHaler] 18 mcg INH DAILY 08/05/16 [History] ALPRAZolam [ALPRAZolam ODT] 0.25 mg PO BEDTIME PRN 10/25/16 [History] Albuterol/Ipratropium [DuoNeb 3.0-0.5 MG/3 ML] 3 ml NEB Q6H PRN 10/25/16 [ History] Calcium Carbonate/Vitamin D3 [Calcium 500 + Vit D 400] 1 each PO BID 10/25/16 [ History] Cephalexin [IMW: Cephalexin] 500 mg PO BID #14 cap 10/25/16 [Rx] Cholecalciferol (Vitamin D3) [Vitamin D3] 1,000 unit PO DAILY 10/25/16 [History] Cyanocobalamin (Vitamin B-12) [Cyanocobalamin Injection] 1,000 mcg IJ ASDIRECTED 10/25/16 [History] Denosumab [Prolia] 60 mg SUBCUT ONETIME 10/25/16 [History] Ferrous Sulfate 325 mg PO DAILY 10/25/16 [History] Loperamide [Imodium] 4 mg PO Q6H PRN 10/25/16 [History] diphenhydrAMINE HCl [Benadryl Allergy] 25 mg PO ASDIRECTED PRN 10/25/16 [History ] Doxycycline Hyclate 100 mg PO Q12H #20 tablet 10/27/16 [Rx] busPIRone [Buspar] 5 mg PO TID 10/27/16 [History] Past Medical History HEENT History: Reports: Other (See Below) 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 Cardiovascular History: Reports: Heart Failure, [place], Other (See Below) Other Cardiovascular History: hypotension, cardiomegaly Respiratory History: Reports: Asthma, COPD, Pneumonia, Recurrent, Other (See Below) Other Respiratory History: wears oxygen at home 2L Gastrointestinal History: Reports: Chronic Constipation, GERD Genitourinary History: Reports: Other (See Below) Other Genitourinary History: stress incontinence 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: Musculoskeletal History: Reports: Osteoarthritis, Osteoporosis Other Musculoskeletal History: 3 herniated disc to cervical spine C2 C3 C5 C6 C7; lumbar spine with herniations from T12 through S1, R hip bursitis, back pain , lumbar degneration, wrist fracture with hardware Neurological History: Reports: None Psychiatric History: Reports: Addiction, Anxiety, Depression Endocrine/Metabolic History: Reports: None Hematologic History: Reports: Anemia Immunologic History: Reports: None Oncologic (Cancer) History: Reports: Other (See Below) Other Oncologic History: vocal cord ca Dermatologic History: Reports: Cellulitis - Infectious Disease History Infectious Disease History: Reports: C-Difficile, Shingles - Past Surgical History Female Surgical History: Reports: None Musculoskeletal Surgical History: Reports: Other (See Below) Social & Family History - Family History Family Medical History: Noncontributory Cardiac: Reports: Heart Failure, [place] Respiratory: Reports: COPD - Tobacco Use Smoking Status *Q: Current Some Day Smoker Years of Tobacco use: 35 Packs/Tins Daily: 0.2 Used Tobacco, but Quit: No Month Tobacco Last Used: 02/01 Second Hand Smoke Exposure: No - Caffeine Use Caffeine Use: Reports: Coffee - Recreational Drug Use Recreational Drug Use: No - Living Situation & Occupation Living situation: Reports: Other Occupation: Retired ED ROS GENERAL - Review of Systems Review Of Systems: See Below Constitutional: Reports: Weakness. Denies: Fever, Chills HEENT: Reports: No Symptoms Respiratory: Reports: Shortness of Breath, Pleuritic Chest Pain, Cough (Chronic) , Sputum (Chronic). Denies: Hemoptysis Cardiovascular: Reports: Edema (This comes and goes). Denies: Chest Pain GI/Abdominal: Reports: No Symptoms. Denies: Abdominal Pain : Reports: No Symptoms Skin: Reports: No Symptoms Neurological: Reports: No Symptoms Psychiatric: Reports: No Symptoms ED EXAM, GENERAL - Physical Exam Exam: See Below Exam Limited By: No Limitations General Appearance: Alert, No Apparent Distress, Other (Vital signs stable she is somewhat tachycardic however pulse in the low 100s) Ears: Normal External Exam, Normal Canal, Normal TMs Nose: Normal Inspection Throat/Mouth: Normal Inspection, Normal Lips, Normal Oropharynx, No Airway Compromise Head: Atraumatic, Normocephalic Neck: Normal Inspection, Supple, Non-Tender, Full Range of Motion. No: Lymphadenopathy (L), Lymphadenopathy (R) Respiratory/Chest: Lungs Clear, Other (She has some right-sided chest wall discomfort with breathing not necessarily aggravated with palpation). No: Rales , Rhonchi, Wheezing Cardiovascular: Regular Rate, Rhythm, No Edema, No Murmur GI/Abdominal: Normal Bowel Sounds, Soft, Non-Tender Extremities: Normal Inspection, No Pedal Edema Neurological: Alert, Oriented, Normal Cognition Course - Vital Signs Last Recorded V/S: Last Vital Signs Temp 36.7 C 10/27/16 15:49 Pulse 106 H 10/27/16 15:49 Resp 20 10/27/16 15:49 BP 110/55 L 10/27/16 15:49 Pulse Ox 99 10/27/16 15:49 - Orders/Labs/Meds Orders: Active Orders 24 hr Category Date Time Status Ang Chest [CT] Stat Exams 10/27/16 17:45 Taken Sodium Chloride 0.9% [Normal Saline] 100 ml Med 10/27/16 19:30 Active IV ASDIRECTED cefTRIAXone [Rocephin] 1 gm Med 10/27/16 20:37 Ordered Sodium Chloride 0.9% [Normal Saline] 100 ml IV ONETIME Medication Orders Sodium Chloride (Normal Saline) 100 mls @ 60 mls/hr IV ASDIRECTED [facility] Last Admin: 10/27/16 19:52 Dose: 60 mls/hr Ceftriaxone Sodium 1 gm/ (Sodium Chloride) 100 mls @ 200 mls/hr IV ONETIME ONE Stop: 10/27/16 21:06 Labs: Laboratory Tests 10/27/16 Range/Units 17:56 Sodium 134 L (136-145) mEq/L Potassium 3.6 (3.5-5.1) mEq/L Chloride 95 L (98-107) mEq/L Carbon Dioxide 33 H (21-32) mEq/L Anion Gap 9.6 (5-15) BUN 15 (7-18) mg/dL Creatinine 0.7 (0.55-1.02) mg/dL Est Cr Clr Drug Dosing TNP Estimated GFR (MDRD) > 60 (>60) mL/min BUN/Creatinine Ratio 21.4 H (14-18) Glucose 118 H (80-115) mg/dL Calcium 8.1 L (8.5-10.1) mg/dL Meds: Medications Generic Name Dose Route Start Last Admin Trade Name Freq PRN Reason Stop Dose Admin Sodium Chloride 100 mls @ 60 mls/hr 10/27/16 19:30 10/27/16 19:52 Normal Saline IV 60 mls/hr ASDIRECTED NEO Administration Ceftriaxone Sodium 1 gm/ 100 mls @ 200 mls/hr 10/27/16 20:37 Sodium Chloride IV 10/27/16 21:06 ONETIME ONE Discontinued Medications Generic Name Dose Route Start Last Admin Trade Name Freq PRN Reason Stop Dose Admin Lactated Ringer's 500 mls @ 999 mls/hr 10/27/16 17:43 10/27/16 17:58 Ringers, Lactated IV 10/27/16 18:13 999 mls/hr .BOLUS ONE Administration Iopamidol 100 ml 10/27/16 19:27 10/27/16 19:52 Isovue-370 (76%) IVPUSH 10/27/16 19:28 100 ml ONETIME ONE Administration Sodium Chloride 10 ml 10/27/16 19:27 10/27/16 19:52 Saline Flush FLUSH 10/27/16 19:28 10 ml ONETIME ONE Administration - Re-Assessments/Exams Free Text/Narrative Re-Assessment/Exam: 10/27/16 20:30 Patient was given a fluid bolus and we ordered a basic metabolic panel anticipating getting a CTA chest d-dimer was deferred as using Wells criteria she was already moderate probability. CT shows no evidence of pulmonary embolism she does have right upper lung posterior pneumonia however. The patient will receive a gram of Rocephin tonight and tomorrow started on doxycycline the patient is already taken cephalexin she will continue this. Departure - Departure Time of Disposition: 20:38 Disposition: Home, Self-Care 01 Clinical Impression: Pneumonia Qualifiers: Pneumonia type: due to unspecified organism Laterality: unspecified laterality Lung location: unspecified part of lung Qualified Code(s): J18.9 - Pneumonia, unspecified organism COPD (chronic obstructive pulmonary disease) Qualifiers: COPD type: COPD with acute exacerbation Qualified Code(s): J44.1 - Chronic obstructive pulmonary disease with (acute) exacerbation Clinical Impression: (Ruled Out): Acute exacerbation of chronic obstructive pulmonary disease (COPD) - Discharge Information Prescriptions: Doxycycline Hyclate 100 mg PO Q12H #20 tablet Referrals: Orquidea Hernadez, RECESSING MACHINE OPERATOR [Primary Care Provider] - Forms: ED Department Discharge Additional Instructions: Return to the emergency room with any questions problems worsening symptoms. Evaluation today is consistent with a pneumonia. She is to continue taking her cephalexin she is started on doxycycline 100 mg twice a day. While she is taking the doxycycline hold her iron supplements. Have her take her potassium in between her doxycycline doses. This evening she will receive a gram of Rocephin IV. As we discussed she should have an additional dose of potassium tonight. She needs to follow-up for her PET scan this next month. However they need to be aware of the pneumonia. - My Orders Last 24 Hours: My Active Orders 10/27/16 17:45 Ang Chest [CT] Stat 10/27/16 19:30 Sodium Chloride 0.9% [Normal Saline] 100 ml IV ASDIRECTED 10/27/16 20:37 cefTRIAXone [Rocephin] 1 gm Sodium Chloride 0.9% [Normal Saline] 100 ml IV ONETIME - Assessment/Plan Last 24 Hours: My Active Orders 10/27/16 17:45 Ang Chest [CT] Stat 10/27/16 19:30 Sodium Chloride 0.9% [Normal Saline] 100 ml IV ASDIRECTED 10/27/16 20:37 cefTRIAXone [Rocephin] 1 gm Sodium Chloride 0.9% [Normal Saline] 100 ml IV ONETIME
[2016-10-27] MEDS ORDERED: cefTRIAXone 1 GM in Sodium Chloride 0.9% 100 ML IV ONE (20:37)
[2016-10-27 23:36] VITALS: BP 106/56
--- NOTE | 2016-10-28 08:57 | CT ---
CT chest Technique: Multiple axial sections through the chest were obtained. Intravenous contrast was utilized. Study has been performed as a pulmonary angiogram protocol. Comparison: Previous chest CT of 10/25/16 is available. Findings: No filling defects are seen to indicate pulmonary embolism. Small mediastinal lymph nodes are seen which measure within normal limits. Thoracic aorta shows no aneurysm. Increasing parenchymal density is noted within the right chest from prior exam. Given the rapid worsening this is most likely due to combination of atelectasis and pneumonia. Additional parenchymal density seen more inferiorly within the right lung base which is also more prominent and presumably due to additional pneumonia. Mild interstitial change is seen within the right upper and right lower lung likely due to additional infection. Scarring is noted within the left upper lung. Diffuse emphysematous changes are present. Impression: 1. Increasing density within the right lung from prior chest CT. Given the rapid worsening, findings most likely are infectious in etiology. 2. No findings of pulmonary embolism. Diagnostic code #3 Agree with preliminary report issued by [facility] ([facility] preliminary report dictated on 10/27/16, 9:28 PM Central Time)
== END 2016-10-27 21:30 | disposition home or self-care (01) ==
LOC: JD.ED 15:43
DX: J18.9 Pneumonia, unspecified organism (principal); J44.1 Chronic obstructive pulmonary disease with (acute) exacerbation; I50.9 Heart failure, unspecified; I25.2 Old myocardial infarction; K21.9 Gastro-esophageal reflux disease without esophagitis; M19.90 Unspecified osteoarthritis, unspecified site; F41.9 Anxiety disorder, unspecified; F32.9 Major depressive disorder, single episode, unspecified; F17.210 Nicotine dependence, cigarettes, uncomplicated; Z88.2 Allergy status to sulfonamides; Z88.1 Allergy status to other antibiotic agents; Z88.8 Allergy status to other drugs, medicaments and biological substances; Z79.899 Other long term (current) drug therapy; Z79.82 Long term (current) use of aspirin
CPT/HCPCS: 36415; 71275; 80048; 96361; 96365; 99285; J0696; J7030; J7050; J7120; Q9967

== ENCOUNTER 2016-11-20 17:58 | Emergency (ER) | payer MEDICARE, BC ==
[2016-11-20 18:17] VITALS: BP 98/44
[2016-11-20] MEDS ORDERED: oxyCODONE 5 MG Tab PO ONE (18:39)
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
== END 2016-11-20 20:00 | disposition home or self-care (01) ==
LOC: SUPCPDRO 17:58 → JD.ED 17:58
DX: F11.20 Opioid dependence, uncomplicated (principal); I50.9 Heart failure, unspecified; I25.2 Old myocardial infarction; J44.9 Chronic obstructive pulmonary disease, unspecified; K21.9 Gastro-esophageal reflux disease without esophagitis; M19.90 Unspecified osteoarthritis, unspecified site; M81.0 Age-related osteoporosis without current pathological fracture; F32.9 Major depressive disorder, single episode, unspecified; Z86.2 Personal history of diseases of the blood and blood-forming organs and certain disorders involving the immune mechanism; Z99.81 Dependence on supplemental oxygen; Z85.21 Personal history of malignant neoplasm of larynx; Z90.49 Acquired absence of other specified parts of digestive tract; Z98.890 Other specified postprocedural states; Z87.891 Personal history of nicotine dependence; Z79.899 Other long term (current) drug therapy; Z79.82 Long term (current) use of aspirin; Z88.8 Allergy status to other drugs, medicaments and biological substances; Z88.1 Allergy status to other antibiotic agents; Z88.2 Allergy status to sulfonamides; Z91.018 Allergy to other foods
CPT/HCPCS: 99284; A9270

== ENCOUNTER 2016-11-22 19:24 | Emergency (ER) | payer MEDICARE, BC ==
[2016-11-22 19:40] VITALS: BP 106/67
[2016-11-22] MEDS ORDERED: oxyCODONE ER 10 MG TAB.ER PO ONE (20:07)
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
== END 2016-11-22 20:45 | disposition home or self-care (01) ==
LOC: JD.ED 19:24
DX: M54.9 Dorsalgia, unspecified (principal); F11.20 Opioid dependence, uncomplicated; G89.29 Other chronic pain; J45.909 Unspecified asthma, uncomplicated; K21.9 Gastro-esophageal reflux disease without esophagitis; Z88.2 Allergy status to sulfonamides; Z88.1 Allergy status to other antibiotic agents; Z79.899 Other long term (current) drug therapy; Z87.01 Personal history of pneumonia (recurrent); Z87.891 Personal history of nicotine dependence
CPT/HCPCS: 99284; A9270

== ENCOUNTER 2017-04-23 09:45 | Emergency (ER) | payer MEDICARE, MEDICAID ==
--- NOTE | 2017-04-23 11:10 | EDM.PDOC ---
ED HPI GENERAL MEDICAL PROBLEM - General Chief Complaint: Gastrointestinal Problem Stated Complaint: [facility] Time Seen by Provider: 04/23/17 10:15 Source of Information: Reports: Patient History Limitations: Reports: No Limitations - History of Present Illness INITIAL COMMENTS - FREE TEXT/NARRATIVE: The patient states that she has was on oral clindamycin in mid-March for cellulitis of her left leg. She then developed watery diarrhea and abdominal cramps on 04/18/2017, that has not responded to maximum doses of Imodium. She developed nausea and dry heaves 2 days ago, then emesis last night. She states that she had blood in her diarrhea yesterday. She also reports having some chest pain 2 nights ago secondary to the stress of her diarrhea. She has not had a fever. She does not recall eating any bad or spoiled food prior to the development of her diarrhea. No recent travel. The patient's daughter had slight diarrhea 2 days ago. The patient's PCP [facility] through [facility]. She states that no outpatient tests have been done. Lower Back Pain Score (Numeric/FACES): 6 - Related Data Allergies Allergy/AdvReac Type Severity Reaction Status Date / Time clindamycin Allergy Hives Verified 04/23/17 09:50 Sulfa (Sulfonamide Allergy Cannot Verified 04/23/17 09:50 Antibiotics) Remember sunflower oil Allergy Anaphylactic Verified 04/23/17 09:50 Shock sunflower seed Allergy Hives Verified 04/23/17 09:50 alendronate sodium AdvReac Nausea Verified 04/23/17 09:50 [From Fosamax] duloxetine HCl AdvReac Nausea and Verified 04/23/17 09:50 [From Cymbalta] Vomiting erythromycin base AdvReac Nausea Verified 04/23/17 09:50 pregabalin [From Lyrica] AdvReac Pain Verified 04/23/17 09:50 Home Meds: Home Meds ARIPiprazole [Abilify] 2 mg PO DAILY 12/29/14 [History] Furosemide [Lasix] 40 mg PO BID 12/29/14 [History] Albuterol Sulfate [Proair Respiclick] 2 puff INH Q4H PRN 07/24/15 [History] Escitalopram Oxalate 20 mg PO DAILY 08/03/15 [History] Fluticasone/Salmeterol [Advair Diskus 500-50] 1 puff INH BID 08/03/15 [History] Gabapentin [Neurontin] 600 mg PO BID 08/03/15 [History] Aspirin/Caffeine [Jon Back & Body Caplet] 2 tab PO Q6H PRN 02/28/16 [History] Acetaminophen [Tylenol Arthritis] 1,500 mg PO Q6H PRN #0 03/02/16 [Rx] Diclofenac Sodium [Voltaren 1% Gel] 1 applic TOP ASDIRECTED PRN 03/18/16 [ History] Nitroglycerin 0.4 mg .ROUTE ASDIRECTED PRN 08/05/16 [History] Pantoprazole [ProTONIX] 40 mg PO DAILY 08/05/16 [History] Potassium Chloride 40 meq PO DAILY 08/05/16 [History] Rosuvastatin [Crestor] 5 mg PO DAILY 08/05/16 [History] Tiotropium [Spiriva HandiHaler] 18 mcg INH DAILY 08/05/16 [History] Albuterol/Ipratropium [DuoNeb 3.0-0.5 MG/3 ML] 3 ml NEB Q6H PRN 10/25/16 [ History] Calcium Carbonate/Vitamin D3 [Calcium 500 + Vit D 400] 1 each PO BID 10/25/16 [ History] Cholecalciferol (Vitamin D3) [Vitamin D3] 1,000 unit PO DAILY 10/25/16 [History] Cyanocobalamin (Vitamin B-12) [Cyanocobalamin Injection] 1,000 mcg IJ ASDIRECTED 10/25/16 [History] Denosumab [Prolia] 60 mg SUBCUT ONETIME 10/25/16 [History] Loperamide [Imodium] 4 mg PO Q6H PRN 10/25/16 [History] diphenhydrAMINE HCl [Benadryl Allergy] 25 mg PO ASDIRECTED PRN 10/25/16 [History ] busPIRone [Buspar] 10 mg PO BID 10/27/16 [History] oxyCODONE 10 mg PO Q6H #5 tablet 11/20/16 [Rx] Carvedilol [Coreg] 3.125 mg PO DAILY 11/22/16 [History] metroNIDAZOLE [Flagyl] 1 tab PO Q8H #29 tab 04/23/17 [Rx] Past Medical History Cardiovascular History: Reports: Heart Failure, High Cholesterol, Hypertension Respiratory History: Reports: COPD (home O2 3L continulusly) Gastrointestinal History: Reports: GERD Genitourinary History: Reports: Urinary Incontinence (stress incontinence) 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 History: Reports: Musculoskeletal History: Reports: Back Pain, Chronic (due to spinal stenosis), Osteoarthritis, Osteoporosis Psychiatric History: Reports: Addiction, Anxiety, Depression Hematologic History: Reports: Anemia Oncologic (Cancer) History: Reports: 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) - Infectious Disease History Infectious Disease History: Reports: C-Difficile, Shingles - Past Surgical History HEENT Surgical History: Reports: Adenoidectomy, Other (See Below) (Squamous cell CA excised from vocal cords) GI Surgical History: Reports: Appendectomy, Cholecystectomy Neurological Surgical History: Reports: C-Spine, Discectomy, Lumbar Spine Musculoskeletal Surgical History: Reports: Hip Replacement (right), ORIF (left wrist), Other (See Below) (Right thigh sanjiv) Social & Family History - Family History Family Medical History: Noncontributory Cardiac: Reports: Heart Failure, OR Respiratory: Reports: COPD - Tobacco Use Smoking Status *Q: Current Every Day Smoker Years of Tobacco use: 47 Packs/Tins Daily: 1 - Caffeine Use Caffeine Use: Reports: None - Alcohol Use Alcohol Use History: No - Recreational Drug Use Recreational Drug Use: Yes Drug Use in Last 12 Months: Yes Recreational Drug Type: Reports: Oxycodone, Xanax Recreational Drug Use Frequency: Daily - Living Situation & Occupation Living situation: Reports: , Alone Occupation: Retired ED ROS GENERAL - Review of Systems Review Of Systems: ROS reveals no pertinent complaints other than HPI. ED EXAM, GI/ABD - Physical Exam Exam: See Below Exam Limited By: No Limitations General Appearance: Alert, WD/WN, No Apparent Distress Eyes: Bilateral: Normal Appearance, EOMI Ears: Normal External Exam, Hearing Grossly Normal Nose: Normal Inspection, No Blood Throat/Mouth: Normal Inspection, Normal Lips, Normal Voice, No Airway Compromise Head: Atraumatic, Normocephalic Neck: Normal Inspection, Full Range of Motion Respiratory/Chest: No Respiratory Distress, Lungs Clear, Normal Breath Sounds, No Accessory Muscle Use Cardiovascular: Normal Peripheral Pulses, Regular Rate, Rhythm, No Gallop, No JVD, No Murmur, No Rub GI/Abdominal Exam: Normal Bowel Sounds, Soft, Non-Tender, No Organomegaly, No Distention, No Abnormal Bruit, No Mass (Female) Exam: Deferred Rectal (Female) Exam: Deferred Back Exam: Normal Inspection, Full Range of Motion, NT Extremities: Normal Inspection, Normal Range of Motion, No Pedal Edema, Normal Capillary Refill Neurological: Alert, Oriented, Normal Cognition, No Motor/Sensory Deficits Psychiatric: Normal Affect Skin Exam: Warm, Dry, Intact, Normal Color, No Rash EKG INTERPRETATION EKG Date: 04/23/17 Time: 10:55 Rhythm: NSR Rate (Beats/Min): 77 [place]: Normal P-Wave: Present QRS: RBBB (incomplete) ST-T: Normal QT: Normal (+ LVH) Course - Vital Signs Last Recorded V/S: Last Vital Signs Temp 36.4 C 04/23/17 09:45 Pulse 82 04/23/17 12:42 Resp 18 04/23/17 12:42 BP 104/55 L 04/23/17 12:42 Pulse Ox 98 04/23/17 12:42 Orthostatic Blood Pressure [ 73/53 Standing] Orthostatic Blood Pressure [ 78/56 Sitting] Orthostatic Blood Pressure [ 90/54 Supine] - Orders/Labs/Meds Orders: Active Orders 24 hr Category Date Time Status EKG Documentation Completion [RC] STAT Care 04/23/17 10:31 Active Insert Adams Catheter [Insert Urinary Catheter] [OM.PC] Care 04/23/17 10:30 Ordered Q24H Orthostatic Vital Signs [RC] STAT Care 04/23/17 10:31 Active Urinary Catheter Assessment [RC] ASDIRECTED Care 04/23/17 10:30 Active Labs: Laboratory Tests 04/23/17 04/23/17 04/23/17 Range/Units 10:25 10:25 10:37 WBC 7.75 (3.98-10.04) K/mm3 RBC 4.17 (3.98-5.22) M/mm3 Hgb 12.3 (11.2-15.7) gm/L Hct 38.0 (34.1-44.9) % MCV 91.1 (79.4-94.8) fl MCH 29.5 (25.6-32.2) pg MCHC 32.4 (32.2-35.5) g/dl RDW Std Deviation 46.0 (36.4-46.3) fL Plt Count 343 (182-369) K/mm3 MPV 9.8 (9.4-12.3) fl Neutrophils % (Manual) 57 (40-60) % Band Neutrophils % 1 (0-10) % Lymphocytes % (Manual) 37 (20-40) % Atypical Lymphs % 0 % Monocytes % (Manual) 2 (2-10) % Eosinophils % (Manual) 3 (0.7-5.8) % Basophils % (Manual) 0 L (0.1-1.2) Platelet Estimate Adequate RBC Morph Comment Normal Sodium 135 L (136-145) mEq/L Potassium 4.2 (3.5-5.1) mEq/L Chloride 99 (98-107) mEq/L Carbon Dioxide 27 (21-32) mEq/L Anion Gap 13.2 (5-15) BUN 15 (7-18) mg/dL Creatinine 0.9 (0.55-1.02) mg/dL Est Cr Clr Drug Dosing 45.17 mL/min Estimated GFR (MDRD) > 60 (>60) mL/min BUN/Creatinine Ratio 16.7 (14-18) Glucose 94 (80-115) mg/dL Calcium 8.1 L (8.5-10.1) mg/dL Magnesium 1.8 (1.8-2.4) mg/dl Total Bilirubin 0.6 (0.2-1.0) mg/dL AST 15 (15-37) U/L ALT 20 (14-59) U/L Alkaline Phosphatase 55 (46-116) U/L Total Protein 6.8 (6.4-8.2) g/dl Albumin 3.8 (3.4-5.0) g/dl Globulin 3.0 gm/dL Albumin/Globulin Ratio 1.3 (1-2) Urine Color Yellow (Yellow) Urine Appearance Clear (Clear) Urine pH 5.5 (5.0-8.0) Ur Specific Brohard 1.015 (1.005-1.030) Urine Protein Negative (Negative) Urine Glucose (UA) Negative (Negative) Urine Ketones Negative (Negative) Urine Occult Blood Negative (Negative) Urine Nitrite Negative (Negative) Urine Bilirubin Negative (Negative) Urine Urobilinogen 0.2 (0.2-1.0) Ur Leukocyte Esterase Negative (Negative) Urine RBC Not seen (0-5) /hpf Urine WBC 0-5 (0-5) /hpf Ur Epithelial Cells 0-5 (0-5) /hpf Urine Bacteria Few (FEW) /hpf Urine Mucus Not seen (FEW) /hpf C.difficile [id number] C. difficile Tox (PCR) 04/23/17 Range/Units 11:26 WBC (3.98-10.04) K/mm3 RBC (3.98-5.22) M/mm3 Hgb (11.2-15.7) gm/L Hct (34.1-44.9) % MCV (79.4-94.8) fl MCH (25.6-32.2) pg MCHC (32.2-35.5) g/dl RDW Std Deviation (36.4-46.3) fL Plt Count (182-369) K/mm3 MPV (9.4-12.3) fl Neutrophils % (Manual) (40-60) % Band Neutrophils % (0-10) % Lymphocytes % (Manual) (20-40) % Atypical Lymphs % % Monocytes % (Manual) (2-10) % Eosinophils % (Manual) (0.7-5.8) % Basophils % (Manual) (0.1-1.2) Platelet Estimate RBC Morph Comment Sodium (136-145) mEq/L Potassium (3.5-5.1) mEq/L Chloride (98-107) mEq/L Carbon Dioxide (21-32) mEq/L Anion Gap (5-15) BUN (7-18) mg/dL Creatinine (0.55-1.02) mg/dL Est Cr Clr Drug Dosing mL/min Estimated GFR (MDRD) (>60) mL/min BUN/Creatinine Ratio (14-18) Glucose (80-115) mg/dL Calcium (8.5-10.1) mg/dL Magnesium (1.8-2.4) mg/dl Total Bilirubin (0.2-1.0) mg/dL AST (15-37) U/L ALT (14-59) U/L Alkaline Phosphatase (46-116) U/L Total Protein (6.4-8.2) g/dl Albumin (3.4-5.0) g/dl Globulin gm/dL Albumin/Globulin Ratio (1-2) Urine Color (Yellow) Urine Appearance (Clear) Urine pH (5.0-8.0) Ur Specific Brohard (1.005-1.030) Urine Protein (Negative) Urine Glucose (UA) (Negative) Urine Ketones (Negative) Urine Occult Blood (Negative) Urine Nitrite (Negative) Urine Bilirubin (Negative) Urine Urobilinogen (0.2-1.0) Ur Leukocyte Esterase (Negative) Urine RBC (0-5) /hpf Urine WBC (0-5) /hpf Ur Epithelial Cells (0-5) /hpf Urine Bacteria (FEW) /hpf Urine Mucus (FEW) /hpf C.difficile [id number] Presumptive negative C. difficile Tox (PCR) Positive H Meds: Medications Discontinued Medications Generic Name Dose Route Start Last Admin Trade Name Freq PRN Reason Stop Dose Admin Hydromorphone HCl 0.5 mg 04/23/17 11:31 04/23/17 11:41 Dilaudid IVPUSH 04/23/17 11:32 0.5 mg ONETIME STA Administration Metoclopramide HCl 10 mg 04/23/17 11:32 04/23/17 11:39 Reglan IVPUSH 04/23/17 11:33 10 mg ONETIME STA Administration Metronidazole 500 mg 04/23/17 12:25 04/23/17 12:41 Flagyl PO 04/23/17 12:26 500 mg ONETIME STA Administration - Re-Assessments/Exams Free Text/Narrative Re-Assessment/Exam: 04/23/17 11:27 The patient is not orthostatic. 04/23/17 11:33 Notified that the patient is requesting something for pain, and Reglan. The patient takes oxycodone 5 mg po Q6 hrs for chronic back pain. I have ordered IV Dilaudid and IV Reglan. 04/23/17 12:25 The patient's stool sample has returned positive for toxigenic C. difficile. I will start her on oral Flagyl and prescribe a ten-day course. Departure - Departure Time of Disposition: 12:30 Disposition: Home, Self-Care 01 Condition: Fair Clinical Impression: Clostridium difficile diarrhea - Discharge Information Prescriptions: metroNIDAZOLE [Flagyl] 1 tab PO Q8H #29 tab Instructions: Clostridium Difficile Infection, [id number] Referrals: PCP,Unknown [Primary Care Provider] - Forms: ED Department Discharge Additional Instructions: You were seen in the emergency room for diarrhea, nausea, vomiting, and abdominal cramps. Workup in the ER included blood work, a urinalysis, a stool study, an ECG, and positional blood pressure checks. Your stool study returned positive for Clostridium difficile. The remainder of your workup was unremarkable. You have been started on the antibiotic Flagyl. Take one tablet every 8 hours, as prescribed. Finish the entire prescription unless told otherwise by your doctor. Follow-up with your [facility] doctor this week or next. If any other problems, please do not hesitate to return to the ER. - My Orders Last 24 Hours: My Active Orders 04/23/17 10:30 Insert Adasm Catheter [Insert Urinary Catheter] [OM.PC] Q24H Urinary Catheter Assessment [RC] ASDIRECTED 04/23/17 10:31 EKG Documentation Completion [RC] STAT Orthostatic Vital Signs [RC] STAT - Assessment/Plan Last 24 Hours: My Active Orders 04/23/17 10:30 Insert Adams Catheter [Insert Urinary Catheter] [OM.PC] Q24H Urinary Catheter Assessment [RC] ASDIRECTED 04/23/17 10:31 EKG Documentation Completion [RC] STAT Orthostatic Vital Signs [RC] STAT
[2017-04-23] MEDS ORDERED: HYDROmorphone 0.5 MG/0.5 ML SYRINGE IVPUSH STA (11:31)
[2017-04-23] MEDS ORDERED: Metoclopramide 10 MG/2 ML SDV IVPUSH STA (11:32)
[2017-04-23] MEDS ORDERED: metroNIDAZOLE 500 MG Tab PO STA (12:25)
[2017-04-23 12:44] VITALS: BP 104/55
== END 2017-04-23 13:15 | disposition home or self-care (01) ==
LOC: JD.ED 09:45
DX: A04.72 Enterocolitis due to Clostridium difficile, not specified as recurrent (principal); R07.9 Chest pain, unspecified; J44.9 Chronic obstructive pulmonary disease, unspecified; I11.0 Hypertensive heart disease with heart failure; I50.9 Heart failure, unspecified; K21.9 Gastro-esophageal reflux disease without esophagitis; F41.9 Anxiety disorder, unspecified; F32.9 Major depressive disorder, single episode, unspecified; Z79.899 Other long term (current) drug therapy; Z85.828 Personal history of other malignant neoplasm of skin; Z88.1 Allergy status to other antibiotic agents; Z88.8 Allergy status to other drugs, medicaments and biological substances; Z88.2 Allergy status to sulfonamides; Z91.09 Other allergy status, other than to drugs and biological substances
CPT/HCPCS: 36415; 51702; 80053; 81001; 83735; 85025; 87493; 93005; 96374; 96375; 99285; A9270; J1170; J2765; 99284